=== PATIENT | male | born 1940 | race Hispanic/Latino ===

== ENCOUNTER 2020-07-15 08:13 | Emergency (ER) | payer MEDICARE ==
[2020-07-15 08:20] VITALS: BP 153/77
--- NOTE | 2020-07-15 08:36 | Emergency Department Report ---
ED Abdominal Pain HPI - General Chief Complaint: Abdominal Pain Stated Complaint: KIDNEY STONE PUI?: No Time Seen by Provider: 07/15/20 08:28 Source: patient Mode of arrival: Ambulatory Limitations: No Limitations - History of Present Illness Initial Comments: Patient is a pleasant 79-year-old male that comes to the emergency room today complaining of right flank pain. He is known to Dr. Raza in urology. He has had kidney stones in the past. He states that this pain is just as his prior kidney stone. He is grabbing his right side on exam. He did call urology office but they were unable to see him until the of this month. Patient is ambulatory. He is not having any nausea and vomiting at the current time. However he does endorse nausea. He has no fever or chills. He has had no diarrhea or constipation. He has had no trauma or fall. MD Complaint: abdominal pain -: days(s) Location: R flank Radiation: none Severity: moderate Improves With: nothing Worsens With: nothing Associated Symptoms: denies other symptoms - Related Data Home Medications Medication Instructions Recorded Confirmed Last Taken Insulin Aspart Prot/Aspart(Nf) 40 units SQ BID 11/30/15 12/29/15 12/28/15 19:00 [Novolog Mix 70/30] Losartan Potassium 1 tab PO DAILY 11/30/15 12/29/15 12/29/15 08:00 Simvastatin 1 tab PO DAILY 11/30/15 12/29/15 12/28/15 09:00 oxyCODONE /ACETAMINOPHEN [Percocet 1 tab PO Q6HR PRN 11/30/15 12/29/15 12/29/15 08:00 5/325] Previous Rx's Medication Instructions Recorded Last Taken Type Ibuprofen [Motrin] 800 mg PO Q8HR PRN #30 tablet 07/15/20 Unknown Rx Sulfamethoxazole/Trimethoprim 1 each PO BID #10 tablet 07/15/20 Unknown Rx [Bactrim DS TAB] Tamsulosin [Flomax] 0.4 mg PO QDAY #10 cap 07/15/20 Unknown Rx traMADoL [Ultram] 50 mg PO Q6HR PRN #12 tablet 07/15/20 Unknown Rx Allergies Allergy/AdvReac Type Severity Reaction Status Date / Time No Known Allergies Allergy Verified 12/18/15 10:47 ED Review of Systems ROS: Stated complaint: KIDNEY STONE Other details as noted in HPI Comment: All other systems reviewed and negative ED Past Medical Hx - Past Medical History Previous Medical History?: Yes Hx Hypertension: Yes Hx Heart Attack/AMI: No Hx Diabetes: Yes Hx GERD: Yes Hx Seizures: No Hx Kidney Stones: Yes Hx HIV: No Additional medical history: k stone - Surgical History Past Surgical History?: Yes Additional Surgical History: liptripsy - Family History Family history: no significant - Social History Smoking Status: Never Smoker Substance Use Type: None - Medications Home Medications: Home Medications Medication Instructions Recorded Confirmed Last Taken Type Insulin Aspart Prot/Aspart(Nf) 40 units SQ BID 11/30/15 12/29/15 12/28/15 19:00 History [Novolog Mix 70/30] Losartan Potassium 1 tab PO DAILY 11/30/15 12/29/15 12/29/15 08:00 History Simvastatin 1 tab PO DAILY 11/30/15 12/29/15 12/28/15 09:00 History oxyCODONE /ACETAMINOPHEN [Percocet 1 tab PO Q6HR PRN 11/30/15 12/29/15 12/29/15 08:00 History 5/325] Ibuprofen [Motrin] 800 mg PO Q8HR PRN #30 tablet 07/15/20 Unknown Rx Sulfamethoxazole/Trimethoprim 1 each PO BID #10 tablet 07/15/20 Unknown Rx [Bactrim DS TAB] Tamsulosin [Flomax] 0.4 mg PO QDAY #10 cap 07/15/20 Unknown Rx traMADoL [Ultram] 50 mg PO Q6HR PRN #12 tablet 07/15/20 Unknown Rx ED Physical Exam - General Limitations: No Limitations General appearance: alert, in no apparent distress - Head Head exam: Present: atraumatic, normocephalic - Eye Eye exam: Present: normal appearance - ENT ENT exam: Present: mucous membranes moist - Neck Neck exam: Present: normal inspection - Respiratory Respiratory exam: Present: normal lung sounds bilaterally. Absent: respiratory distress - Cardiovascular Cardiovascular Exam: Present: regular rate, normal rhythm. Absent: systolic murmur, diastolic murmur, rubs, gallop - GI/Abdominal GI/Abdominal exam: Present: soft, normal bowel sounds - Rectal Rectal exam: Present: deferred - Extremities Exam Extremities exam: Present: normal inspection - Back Exam Back exam: Present: normal inspection - Neurological Exam Neurological exam: Present: alert, oriented X3 - Psychiatric Psychiatric exam: Present: normal affect, normal mood - Skin Skin exam: Present: warm, dry, intact, normal color. Absent: rash ED Course Vital Signs 07/15/20 07/15/20 07/15/20 08:14 09:44 12:44 Temperature 97.9 F Pulse Rate 61 74 Respiratory 19 20 20 Rate Blood Pressure 153/77 O2 Sat by Pulse 95 98 Oximetry ED Medical Decision Making - Lab Data Result diagrams: 07/15/20 08:32 07/15/20 08:32 - Radiology Data Radiology results: report reviewed, image reviewed see report - Medical Decision Making Labs 07/15/20 07/15/20 07/15/20 08:32 08:32 11:13 WBC 7.6 RBC 5.64 H Hgb 17.4 H Hct 50.1 H MCV 89 MCH 31 MCHC 35 H RDW 13.1 L Plt Count 131 L Lymph % (Auto) 16.4 [place] % (Auto) 8.2 H Eos % (Auto) 1.2 Baso % (Auto) 0.7 Lymph # (Auto) 1.2 [place] # (Auto) 0.6 Eos # (Auto) 0.1 Baso # (Auto) 0.1 Seg Neutrophils % 73.5 H Seg Neutrophils # 5.6 Sodium 137 Potassium 3.8 Chloride 103.5 Carbon Dioxide 26 Anion Gap 11 BUN 15 Creatinine 1.2 Estimated GFR 58 BUN/Creatinine Ratio 13 Glucose 96 Calcium 8.9 Total Bilirubin 1.10 AST 12 ALT 10 Alkaline Phosphatase 26 L Total Protein 6.2 L Albumin 3.8 L Albumin/Globulin Ratio 1.6 Lipase 12 L Urine Color Yellow Urine Turbidity Cloudy Urine pH 5.0 Ur Specific [place] 1.024 Urine Protein 30 mg/dl Urine Glucose (UA) Neg Urine Ketones Neg Urine Blood Neg Urine Nitrite Neg Urine Bilirubin Neg Urine Urobilinogen 2.0 Ur Leukocyte Esterase Neg Urine WBC (Auto) < 1.0 Urine RBC (Auto) 5.0 Ur Renal Epithelial Cell 4 Amorphous Crystals Few Urine Mucus 3+ Vital Signs 07/15/20 07/15/20 07/15/20 08:14 09:44 12:44 Temperature 97.9 F Pulse Rate 61 74 Respiratory 19 20 20 Rate Blood Pressure 153/77 O2 Sat by Pulse 95 98 Oximetry labs noted ua noted urine culture pending- sent home on bactrim- call if not sensitive to med Patient's urine had no nitrates and leukocytes. However on exam and had a lot of sediment and it and was concerning on gross appearance for UTI. CT noted 1L NS/zofran given On reexam- pt ambulatory and non ill appearing. Reports relief with toradol. Pt updated on findings of studies Pt being discharged home with medications, follow-up in activity and diet instru ctions. He verbalizes understanding of discharge plan of care. Patient has been given a copy of his lab and radiology imaging. - Differential Diagnosis ro k stone/uti Critical care attestation.: If time is entered above; I have spent that time in minutes in the direct care of this critically ill patient, excluding procedure time. ED Disposition Clinical Impression: Flank pain, UTI (urinary tract infection), Protein in urine Disposition: TO HOME OR SELFCARE Is pt being admited?: No Does the pt Need Aspirin: No Condition: Stable Instructions: Flank Pain, Adult, [id number] Additional Instructions: meds as ordered follow up with uro deo Prescriptions: Sulfamethoxazole/Trimethoprim [Bactrim DS TAB] 1 each PO BID #10 tablet Tamsulosin [Flomax] 0.4 mg PO QDAY #10 cap Ibuprofen [Motrin] 800 mg PO Q8HR PRN #30 tablet PRN Reason: Pain, Moderate (4-6) traMADoL [Ultram] 50 mg PO Q6HR PRN #12 tablet PRN Reason: Pain Referrals: [facility] [Other] - 3-5 Days DONALDO RAZA MD [Staff Physician] - 3-5 Days Time of Disposition: 12:34
[2020-07-15 08:52] LABS: Basophils # (Auto) 0.1 K/mm3 (0.0-0.1); Basophils % (Auto) 0.7 % (0.0-1.8); Eosinophils # (Auto) 0.1 K/mm3 (0.0-0.4); Eosinophils % (Auto) 1.2 % (0.0-4.3); Hematocrit 50.1 % (35.5-45.6); Hemoglobin 17.4 gm/dl (11.8-15.2); Lymphocytes # (Auto) 1.2 K/mm3 (1.2-5.4); Lymphocytes % (Auto) 16.4 % (13.4-35.0); Mean Corpuscular HGB Conc 35 % (32-34); Mean Corpuscular Volume 89 fl (84-94); Monocytes # (Auto) 0.6 K/mm3 (0.0-0.8); Monocytes % (Auto) 8.2 % (0.0-7.3); Platelet Count 131 K/mm3 (140-440); Red Blood Count 5.64 M/mm3 (3.65-5.03); Red Cell Distribution Width 13.1 % (13.2-15.2)
[2020-07-15] MEDS ORDERED: SODIUM CHLORIDE 0.9% 1000 ML 1,000 ML IV ONE (09:02)
[2020-07-15] MEDS ORDERED: ONDANSETRON 4 MG/2 ML INJ IV ONE (09:02)
[2020-07-15 09:04] LABS: Albumin 3.8 g/dL (3.9-5); Calcium 8.9 mg/dL (8.4-10.2)
[2020-07-15] MEDS ORDERED: KETOROLAC 30 MG/1 ML INJ IV ONE (09:39)
--- NOTE | 2020-07-15 09:50 | Cat Scan Report ---
CT ABDOMEN AND PELVIS WITHOUT CONTRAST INDICATION / CLINICAL INFORMATION: Unspecified flank pain, history of kidney stones. TECHNIQUE: Axial CT images were obtained through the abdomen and pelvis without IV contrast. All CT scans at [facility] location are performed using CT dose reduction for ALARA by means of automated exposure control. COMPARISON: CT abdomen and pelvis with contrast from 11/17/2015 FINDINGS: LOWER CHEST: The lung bases are clear. There is severe coronary atherosclerosis and severe calcificat ion of the aortic valve. No other significant abnormality. LIVER: No significant abnormality. GALLBLADDER: Cholelithiasis is seen without evidence of acute cholecystitis. BILE DUCTS: No significant abnormality. PANCREAS: No significant abnormality. SPLEEN: No significant abnormality. ADRENALS: No significant abnormality. RIGHT KIDNEY / URETER: No stones are identified. A right lower renal pole parapelvic cyst measures 1. 5 cm. No other significant abnormality. LEFT KIDNEY / URETER: No stones or other significant abnormalities. STOMACH / SMALL BOWEL: No significant abnormality. COLON: No significant abnormality. APPENDIX: No significant abnormality. PERITONEUM: No free fluid. No free air. No fluid collection. LYMPH NODES: No significant adenopathy. AORTA / ARTERIES: There is mild generalized atherosclerosis. The aorta is normal in caliber. IVC / VEINS: No significant abnormality. URINARY BLADDER: No significant abnormality. REPRODUCTIVE ORGANS: Prior prostatectomy, no significant abnormality. ADDITIONAL FINDINGS: None. SKELETAL SYSTEM: There are moderate degenerative changes throughout the spine and pelvis without an a cute abnormality. IMPRESSION: 1. No renal stones or other acute abnormalities of the abdomen or pelvis. 2. Additional findings as above. Signer Name: Rogerio El MD Signed: 07/15/2020 9:45 AM Workstation Name: [facility] [employer]
[2020-07-15 12:08] LABS: Amorphous Crystals,Urine Few; Bilirubin,Urine NEG (Negative); Blood,Urine NEG (Negative); Color,Urine Yellow (Yellow); Mucus,Urine 3+ /HPF; Renal Epithelial Cells,Urine 4 /LPF
[2020-07-15 12:12] LABS: WBC,Urine < 1.0 /HPF (0.0-6.0)
== END 2020-07-15 12:44 | disposition home or self-care (01) ==
LOC: ED 08:13
DX: N39.0 Urinary tract infection, site not specified (principal); R80.9 Proteinuria, unspecified; I10 Essential (primary) hypertension; E11.9 Type 2 diabetes mellitus without complications; K21.9 Gastro-esophageal reflux disease without esophagitis; N20.0 Calculus of kidney; Z79.4 Long term (current) use of insulin; Z79.899 Other long term (current) drug therapy
CPT/HCPCS: 36415; 74176; 80053; 81001; 83690; 85025; 87086; 96361; 96374; 96375; 99284; J1885; J2405; J7030